=== PATIENT | female | born 1975 | race Caucasian/White ===

== ENCOUNTER 2021-10-26 09:38 | Outpatient (CLI) | payer OTHER, SELFPAY ==
--- NOTE | 2021-10-26 09:45 | US_ITS ---
Final Report Patient: JOSHUA BARR Facility:?[facility] Patient ID:?[id number] Site Patient [id number]:?[id number]. Site :?[id number] Study:?US Pelvis -10/26/2021 10:39:14 AM Ordering Physician:Karlos July Final Report: INDICATION: IUD strings not visualized on physical exam. TECHNIQUE: Ultrasound pelvis transvaginal for better assessment or to better visualize the endometrium. Real-time sonographic images with spectral and color Doppler imaging of the ovaries were obtained. COMPARISON: None. FINDINGS: Uterus: 8.4 x 4.5 x 3.7 cm. Normal echotexture of the myometrium. No masses. Endometrium: Transvaginal imaging was performed to better evaluate the endometrium. IUD is in expected position in the nonthickened endometrium. No sign of endometrial mass or fluid. Ovaries are not visualized. Cul-de-sac: No significant free fluid. IMPRESSION: 1. IUD is in expected position. 2. Ovaries are not visualized. Dictated by Ashutosh Sen MD @ 10/26/2021 10:40:49 AM (Electronic Signature)
== END 2021-10-26 09:39 | disposition home or self-care (01) ==
PROVIDERS: PCP Student in an Organized Health Care Education/Training Program; Visit Provider Physician Assistant
DX: T83.32XA Displacement of intrauterine contraceptive device, initial encounter (principal)
CPT/HCPCS: 76830

== ENCOUNTER 2022-04-04 17:26 | Outpatient (CLI) | payer OTHER, SELFPAY ==
[2022-04-04 18:19] LABS: Cholesterol* 251 mg/dL (90-199); HDL Cholesterol* 67 mg/dL (>=50); LDL Cholesterol Calculated 126 mg/dL (<100); Triglycerides* 292 mg/dL (40-149)
[2022-04-04 18:39] LABS: Vitamin D 25 Hydroxy* 21 ng/mL (30-80)
== END 2022-04-04 17:27 | disposition home or self-care (01) ==
PROVIDERS: PCP Student in an Organized Health Care Education/Training Program; Visit Provider Registered Nurse
DX: Z01.419 Encounter for gynecological examination (general) (routine) without abnormal findings (principal); R53.83 Other fatigue; E78.5 Hyperlipidemia, unspecified; E11.9 Type 2 diabetes mellitus without complications; E66.01 Morbid (severe) obesity due to excess calories
CPT/HCPCS: 80061; 82306; 84439; 84443

== ENCOUNTER 2024-10-20 07:03 | Outpatient (CLI) | payer OTHER, SELFPAY ==
--- NOTE | 2024-10-20 07:15 | CRLHL7_ITS ---
For Patients: As a result of the Century Cures Act, medical imaging exams and procedure reports are released immediately into your electronic medical record. You may view this report before your referring provider. If you have questions, please contact your health care provider. INDICATION: Low back pain. Left-sided sciatica TECHNIQUE: Noncontrast sagittal and axial T1, T2, and sagittal STIR sequences are provided. Compared to prior study from November 08, 2020. FINDINGS: The overall stature, alignment and intrinsic marrow signal of the lumbar spine is within normal limits. Conus is normal. L4-5: Improved appearance of the prior noted minor disc bulge. No central canal or foraminal narrowing. Remainder of the lumbar spine is unremarkable, specifically no evidence of suspicious central canal or foraminal narrowing. IMPRESSION: 1. Improved disc bulge at L4-5 resulting in no significant central canal or foraminal narrowing. 2. Otherwise, unremarkable MRI of the lumbar spine. Dictated by Vj Michelle MD @ 10/20/2024 1:36:11 PM (Electronically Signed)
== END 2024-10-20 07:04 | disposition home or self-care (01) ==
LOC: MRI 07:05
PROVIDERS: PCP Student in an Organized Health Care Education/Training Program; Visit Provider Family Medicine
DX: M54.42 Lumbago with sciatica, left side (principal); M51.26 Other intervertebral disc displacement, lumbar region
CPT/HCPCS: 72148

== ENCOUNTER 2024-11-25 07:03 | Outpatient (CLI) | payer OTHER, SELFPAY | END 2024-11-25 07:04 | disposition home or self-care (01) | LOC: INJ CL 07:03 | PROVIDERS: PCP Student in an Organized Health Care Education/Training Program; Visit Provider Family Medicine | DX: M47.816 Spondylosis without myelopathy or radiculopathy, lumbar region (principal) | CPT/HCPCS: 64493; 64494; J0702; Q9966 ==

== ENCOUNTER 2025-03-04 07:59 | Outpatient (CLI) | payer OTHER, SELFPAY ==
--- NOTE | 2025-03-04 08:15 | CRLHL7_ITS ---
For Patients: As a result of the Century Cures Act, medical imaging exams and procedure reports are released immediately into your electronic medical record. You may view this report before your referring provider. If you have questions, please contact your health care provider. Indication: Brain fog. Technique: Noncontrast sagittal T1, axial FLAIR, T2, diffusion weighted sequences are provided. No comparisons. Findings: The ventricles, sulci and gyri are normal size, shape and contour for age. The midline structures are centrally located with no evidence of shift. There are no suspicious intra or extra-axial fluid collections. No region of restricted diffusion. Expected flow voids in the cavernous carotids and basilar artery. Impression: 1. No radiographic evidence of acute intracranial abnormalities. Dictated by Vj Michelle MD @ 03/04/2025 8:50:16 AM (Electronically Signed)
== END 2025-03-04 08:00 | disposition home or self-care (01) ==
LOC: MRI 08:00
PROVIDERS: PCP Family Medicine; Visit Provider Family Medicine
DX: R41.89 Other symptoms and signs involving cognitive functions and awareness (principal); R41.3 Other amnesia
CPT/HCPCS: 70551